=== PATIENT | male | born 1975 | race Two or more races ===

== ENCOUNTER 2023-06-20 09:58 | Emergency (ER) | payer OTHER ==
[~2023-06-20] VITALS: Ht 180.3 cm; Wt 134.7 kg
[2023-06-20] MEDS ORDERED: LOSARTAN-HCTZ1 EAC2 PO (10:24)
[2023-06-20] MEDS ORDERED: DAFLONEX-XL 11300 MG PO (10:24)
[2023-06-20] MEDS ORDERED: KETOROLAC TROMETHAMINE 60 MG VIAL IM ONE (11:15)
== END 2023-06-20 13:24 | disposition home or self-care (01) ==
LOC: ER 09:58
DX: S49.81XA Other specified injuries of right shoulder and upper arm, initial encounter (principal); S79.811A Other specified injuries of right hip, initial encounter; W18.39XA Other fall on same level, initial encounter; Y93.89 Activity, other specified; Y92.511 Restaurant or cafe as the place of occurrence of the external cause; Y99.8 Other external cause status; I10 Essential (primary) hypertension
CPT/HCPCS: 73030; 73060; 73070; 73090; 73110; 73130; 73502; 73560; 96372; 99283; J1885